=== PATIENT | female | born 1970 | race Caucasian/White ===

== ENCOUNTER 2016-07-16 12:12 | Emergency (ER) | payer MEDICAID ==
[2016-07-16 13:59] LABS: APPEARANCE TURBID (CLEAR); BACTERIA MANY /hpf (NONE SEEN); BILIRUBIN NEGATIVE (NEGATIVE); COLOR YELLOW (YELLOW); EPITHELIAL CELLS 0-5 /hpf (0-5); GLUCOSE NEGATIVE (NEGATIVE); KETONE NEGATIVE (NEGATIVE); LEUKOCYTE ESTERASE 2+ (NEGATIVE); MUCUS <1+ /lpf (NONE SEEN); NITRITE POSITIVE (NEGATIVE); PROTEIN 2+ mg/dL (NEGATIVE); RED CELLS - URINE >50 /hpf (0-5); SPECIFIC GRAVITY 1.015 (1.005-1.020); UROBILINOGEN NORMAL (NORMAL); WHITE CELLS - URINE >50 /hpf (0-5)
== END 2016-07-16 16:04 | disposition home or self-care (01) ==
LOC: D.ER 12:12
PROVIDERS: Emergency Medicine
DX: R30.0 Dysuria (principal); R10.9 Unspecified abdominal pain; N12 Tubulo-interstitial nephritis, not specified as acute or chronic

== ENCOUNTER → 2016-08-19 07:46 | Outpatient (CLI) | payer MEDICAID | LOC: D.MRI 07:46 | DX: F17.219 Nicotine dependence, cigarettes, with unspecified nicotine-induced disorders (principal) ==

== ENCOUNTER 2016-10-25 16:05 | Emergency (ER) | payer MEDICAID | END 2016-10-25 19:55 | disposition home or self-care (01) | LOC: D.ER 16:05 | DX: G43.909 Migraine, unspecified, not intractable, without status migrainosus (principal) ==

== ENCOUNTER 2017-01-05 13:13 | Emergency (ER) | payer MEDICAID ==
[2017-01-05 13:54] LABS: BASOPHILS 0.2 % (0-2); EOSINOPHILS 0.8 % (0-7); HEMATOCRIT 33.7 % (36.0-48.0); HEMOGLOBIN 10.9 g/dL (12-16); IMMATURE GRANULOCYTES 0.2 % (0-5); LYMPHOCYTES 12.9 % (15-50); MCH 27.9 pg (26.0-34.0); MCHC 32.3 g/dL (31.0-37.0); MCV 86.4 fL (80.0-100.0); MONOCYTES 8.4 % (2-11); NEUTROPHILS 77.5 % (40-80); PLATELET COUNT 174 10x3/uL (130-400); WBC 6.3 10x3/uL (4.8-10.8)
[2017-01-05 14:03] LABS: CALC OSMOLALITY 271 mosm/kg (275-300); CALCIUM 8.9 mg/dL (8.5-10.1); CARBON DIOXIDE 29.2 mmol/L (21.0-32.0); CHLORIDE - SERUM 101 mmol/L (98-107); CREATININE - SERUM 0.8 mg/dL (0.6-1.3); GLUCOSE 89 mg/dL (74-106); POTASSIUM - SERUM 4.1 mmol/L (3.5-5.1); SODIUM 137 mmol/L (136-145); UREA NITROGEN 11 mg/dL (7-18); eGFR NON AFRICAN AMERICAN 81 mL/min (90-120)
[2017-02-25] MEDS ORDERED: GEODON80 MG PO (14:32)
[2017-02-25] MEDS ORDERED: DONEPEZIL HCL5 M1 PO (14:32)
[2017-02-25] MEDS ORDERED: LEXAPRO20 MG PO (14:32)
[2017-02-25] MEDS ORDERED: AMBIEN5 MG PO (14:33)
[2017-02-25] MEDS ORDERED: BUPROPION XL300 MG PO (14:33)
[2017-02-26 08:40] VITALS: BMI 22.8
== END 2017-01-05 15:15 | disposition home or self-care (01) ==
LOC: D.ER 13:13
PROVIDERS: Nurse Practitioner Acute Care
DX: S06.0X9A Concussion with loss of consciousness of unspecified duration, initial encounter (principal); W19.XXXA Unspecified fall, initial encounter; Y93.89 Activity, other specified; Y92.029 Unspecified place in mobile home as the place of occurrence of the external cause; S00.81XA Abrasion of other part of head, initial encounter

== ENCOUNTER 2017-02-26 07:03 | Day surgery (SDC) | payer MEDICAID ==
[~2017-02-26] VITALS: Ht 165.1 cm; Wt 62.1 kg
[~2017-02-26 07:03] MED LIST: AMBIEN5 MG PO; BUPROPION XL300 MG PO; DONEPEZIL HCL5 M1 PO; GEODON80 MG PO; LEXAPRO20 MG PO
[2017-02-26 07:58] LABS: BASOPHILS 0.4 % (0-2); EOSINOPHILS 2.1 % (0-7); HEMATOCRIT 40.5 % (36.0-48.0); HEMOGLOBIN 13.1 g/dL (12-16); IMMATURE GRANULOCYTES 0.2 % (0-5); LYMPHOCYTES 23.2 % (15-50); MCH 27.6 pg (26.0-34.0); MCHC 32.3 g/dL (31.0-37.0); MCV 85.3 fL (80.0-100.0); MEAN PLATELET VOLUME 11.6 fL (7.4-10.4); MONOCYTES 8.6 % (2-11); NEUTROPHILS 65.5 % (40-80); PLATELET COUNT 208 10x3/uL (130-400); RBC 4.75 10x6/uL (4.00-5.40); RDW 13.9 % (11.5-14.5); WBC 4.7 10x3/uL (4.8-10.8)
[2017-02-26 08:40] VITALS: BP 156/89; Ht 165.1 cm; Wt 62.1 kg
--- NOTE | 2017-02-27 15:02 | OP ---
PATIENT NAME: AIDEN SOTELO MEDICAL RECORD: [id number] :68 LOCATION:[facility] ADMISSION DATE: SURGEON: VAUGHN DAVIS MD DATE OF OPERATION: 02/26/2017 SURGEON: Vaughn Davis MD ANESTHESIA: MAC. PREOPERATIVE DIAGNOSIS: Urge urinary incontinence. POSTOPERATIVE DIAGNOSIS: Urge urinary incontinence. PROCEDURES: Cystoscopy and intravesical Botox injection of 100 units. BLOOD LOSS: None. 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 She has been diagnosed with this condition also as well as she has developed urge urinary incontinence. Because of her cognitive impairment, I did not wish to treat this condition with anticholinergic medications which could make her confusion worse. I did try Myrbetriq 50 mg with the patient. Myrbetriq is a beta-3 agonist and it will not affect her cognitive function. Unfortunately, the Myrbetriq did not help her urge incontinence. She comes now to have intravesical Botox injected. She is not allergic to any medication. She was given Ancef utilization management um nurse to the OR. DESCRIPTION OF PROCEDURE: The patient was given IV sedation. She was placed in dorsal lithotomy position and prepped and draped. The 100 units of Botox was dissolved in 10 mL of injectable preservative-free saline. This was placed in a syringe. At 10 different sites, we injected 1 cc of this solution, giving 10 units at each injection site. We avoided the ureteral orifices and the trigone. Once the procedure was done, the bladder was fully emptied through the cystoscope sheath. I will see the patient in follow up in 2 weeks' time. TRANSINT:[id number] Voice Confirmation ID: [id number] DOCUMENT ID: [id number] VAUGHN DAVIS MD at 1502 CC: [id number] DICTATION DATE: 02/26/17 1449 FLORAL DESIGNER SALESPERSON: 02/26/17 1613 [facility] 02/26/[address] [address]
== END 2017-02-26 15:30 | disposition home or self-care (01) ==
LOC: D.OPS 07:03 → D.PAN 09:45 → D.OPS 09:45 → D.PAN 10:10 → D.OPS 15:30
PROVIDERS: Anesthesiology
DX: N39.41 Urge incontinence (principal); N32.89 Other specified disorders of bladder; Z01.812 Encounter for preprocedural laboratory examination

== ENCOUNTER → 2017-04-29 15:50 | Outpatient (CLI) | payer MEDICAID ==
[2017-02-26 08:40] VITALS: BMI 22.8
== END | disposition home or self-care (01) ==
LOC: D.MRI 04-14 08:30
DX: R51 Headache (principal)

== ENCOUNTER → 2017-09-12 09:08 | Outpatient (CLI) | payer MEDICAID ==
[2017-02-26 08:40] VITALS: BMI 22.8
== END | disposition home or self-care (01) ==
LOC: D.CT 09-11 11:00
DX: G91.9 Hydrocephalus, unspecified (principal)

== ENCOUNTER 2017-11-28 15:26 | Emergency (ER) | payer MEDICAID ==
[~2017-11-28] VITALS: Ht 165.1 cm; Wt 72.3 kg
[2017-11-28 15:45] VITALS: Ht 165.1 cm; Wt 72.3 kg
[2017-11-28] MEDS ORDERED: XANAX2 MG PO (15:49)
[2017-11-28 19:16] LABS: BASOPHILS 0.2 % (0-2); EOSINOPHILS 2.1 % (0-7); HEMATOCRIT 30.5 % (36.0-48.0); LYMPHOCYTES 22.4 % (15-50); MCHC 29.5 g/dL (31.0-37.0); MCV 74.4 fL (80.0-100.0); MEAN PLATELET VOLUME 12.1 fL (7.4-10.4); MONOCYTES 12.5 % (2-11); NEUTROPHILS 62.8 % (40-80); PLATELET COUNT 227 10x3/uL (130-400); RDW 16.2 % (11.5-14.5); WBC 4.3 10x3/uL (4.8-10.8)
[2017-11-28 19:30] LABS: ALBUMIN 3.2 g/dL (3.4-5.0); ALKALINE PHOSPHATASE 94 U/L (46-116); ALT (SGPT) 25 U/L (10-68); CALC OSMOLALITY 276 mosm/kg (275-300); CALCIUM 8.4 mg/dL (8.5-10.1); CARBON DIOXIDE 28.1 mmol/L (21.0-32.0); CHLORIDE - SERUM 104 mmol/L (98-107); CREATININE - SERUM 0.8 mg/dL (0.6-1.3); GLUCOSE 97 mg/dL (74-106); LIPASE 157 U/L (73-393); POTASSIUM - SERUM 3.9 mmol/L (3.5-5.1); PROTEIN - SERUM 7.1 g/dL (6.4-8.2); SODIUM 139 mmol/L (136-145); UREA NITROGEN 9 mg/dL (7-18); eGFR NON AFRICAN AMERICAN 81 mL/min (90-120)
[2017-11-28] MEDS ORDERED: NORCO 7.5/325 T1 TA1 PO (21:23)
[2017-11-28] MEDS ORDERED: FLUTICASONE PRO16 GM NASAL ×2 (21:23→21:24)
[2017-11-28] MEDS ORDERED: OMNICEF300 MG PO (21:23)
[2017-11-28 21:32] VITALS: BP 155/70
== END 2017-11-28 21:55 | disposition home or self-care (01) ==
LOC: D.ER 15:26
PROVIDERS: Family Medicine
DX: R51 Headache (principal); J01.90 Acute sinusitis, unspecified; R10.32 Left lower quadrant pain; F03.90 Unspecified dementia, unspecified severity, without behavioral disturbance, psychotic disturbance, mood disturbance, and anxiety; F31.9 Bipolar disorder, unspecified

== ENCOUNTER 2017-12-14 19:17 | Emergency (ER) | payer MEDICAID ==
[~2017-12-14] VITALS: Ht 165.1 cm; Wt 72.1 kg
[~2017-12-14 19:17] MED LIST changes: +FLUTICASONE PRO16 GM NASAL; +NORCO 7.5/325 T1 TA1 PO; +OMNICEF300 MG PO; +XANAX2 MG PO
[2017-12-14 19:30] VITALS: Ht 165.1 cm; Wt 72.1 kg
[2017-12-14 19:56] LABS: BASOPHILS 0.4 % (0-2); HEMATOCRIT 30.8 % (36.0-48.0); HEMOGLOBIN 9.4 g/dL (12-16); IMMATURE GRANULOCYTES 0.2 % (0-5); LYMPHOCYTES 22.2 % (15-50); MCHC 30.5 g/dL (31.0-37.0); MCV 72.1 fL (80.0-100.0); MEAN PLATELET VOLUME 11.5 fL (7.4-10.4); MONOCYTES 17.3 % (2-11); NEUTROPHILS 57.9 % (40-80); PLATELET COUNT 242 10x3/uL (130-400); RBC 4.27 10x6/uL (4.00-5.40); RDW 16.8 % (11.5-14.5); WBC 5.1 10x3/uL (4.8-10.8)
[2017-12-14 20:21] LABS: ALBUMIN 3.5 g/dL (3.4-5.0); ANION GAP 16.8 mmol/L (8-16); BILIRUBIN - TOTAL 0.14 mg/dL (0.2-1.3); CALCIUM 8.3 mg/dL (8.5-10.1); CARBON DIOXIDE 23.3 mmol/L (21.0-32.0); CREATININE - SERUM 0.9 mg/dL (0.6-1.3); POTASSIUM - SERUM 4.1 mmol/L (3.5-5.1); PROTEIN - SERUM 7.1 g/dL (6.4-8.2)
[2017-12-14 22:00] VITALS: BP 150/60
== END 2017-12-14 22:50 | disposition home or self-care (01) ==
LOC: D.ER 19:17
PROVIDERS: Family Medicine
DX: Z98.2 Presence of cerebrospinal fluid drainage device (principal); D64.9 Anemia, unspecified; R11.2 Nausea with vomiting, unspecified; Z87.820 Personal history of traumatic brain injury; F03.90 Unspecified dementia, unspecified severity, without behavioral disturbance, psychotic disturbance, mood disturbance, and anxiety

== ENCOUNTER 2018-05-10 11:53 | Emergency (ER) | payer MEDICAID ==
[~2018-05-10] VITALS: Ht 165.1 cm; Wt 73.2 kg
[2018-05-10 11:56] VITALS: Ht 165.1 cm; Wt 73.2 kg
[2018-05-10 12:29] LABS: APPEARANCE CLEAR (CLEAR); COLOR YELLOW (YELLOW)
[2018-05-10 12:30] LABS: BILIRUBIN NEGATIVE (NEGATIVE); GLUCOSE NEGATIVE (NEGATIVE); KETONE NEGATIVE (NEGATIVE); NITRITE NEGATIVE (NEGATIVE); PROTEIN NEGATIVE (NEGATIVE); UROBILINOGEN NORMAL (NORMAL)
[2018-05-10 13:37] LABS: BASOPHILS 0.2 % (0-2); EOSINOPHILS 0 % (0-7); HEMATOCRIT 32.5 % (36.0-48.0); HEMOGLOBIN 9.6 g/dL (12-16); IMMATURE GRANULOCYTES 0.2 % (0-5); MCH 21.3 pg (26.0-34.0); MCHC 29.5 g/dL (31.0-37.0); MCV 72.2 fL (80.0-100.0); MEAN PLATELET VOLUME 10.8 fL (7.4-10.4); MONOCYTES 10.3 % (2-11); NEUTROPHILS 70.3 % (40-80); PLATELET COUNT 239 10x3/uL (130-400)
[2018-05-10 13:48] LABS: ANION GAP 19.1 mmol/L (8-16); BILIRUBIN - TOTAL 0.3 mg/dL (0.2-1.3); CALCIUM 8.6 mg/dL (8.5-10.1); CARBON DIOXIDE 22.1 mmol/L (21.0-32.0); POTASSIUM - SERUM 4.2 mmol/L (3.5-5.1); PROTEIN - SERUM 7.6 g/dL (6.4-8.2)
[2018-05-10] MEDS ORDERED: PHENERGAN DM SYR5 ML PO (16:25)
[2018-05-10] MEDS ORDERED: PROTONIX40 MG PO (16:25)
[2018-05-10 16:53] VITALS: BP 126/54
== END 2018-05-10 16:54 | disposition home or self-care (01) ==
LOC: D.ER 11:53
PROVIDERS: Family Medicine
DX: K29.70 Gastritis, unspecified, without bleeding (principal); D64.9 Anemia, unspecified; M54.5 Low back pain; F03.90 Unspecified dementia, unspecified severity, without behavioral disturbance, psychotic disturbance, mood disturbance, and anxiety

== ENCOUNTER 2018-11-03 06:02 | Day surgery (SDC) | payer MEDICAID ==
[~2018-11-03] VITALS: Ht 165.1 cm; Wt 69.9 kg
[~2018-11-03 06:02] MED LIST changes: +DONEPEZIL HCL10 MG PO; -DONEPEZIL HCL5 M1 PO; +PHENERGAN DM SYR5 ML PO; +PROTONIX40 MG PO
[2018-11-03 06:50] LABS: HEMATOCRIT 26.5 % (36.0-48.0); HEMOGLOBIN 8.1 g/dL (12-16); MCH 23.7 pg (26.0-34.0); MCHC 30.6 g/dL (31.0-37.0); MCV 77.5 fL (80.0-100.0); MEAN PLATELET VOLUME 10.2 fL (7.4-10.4); RBC 3.42 10x6/uL (4.00-5.40); RDW 17.8 % (11.5-14.5); WBC 6.1 10x3/uL (4.8-10.8)
[2018-11-03] MEDS ORDERED: LISINOPRIL10 MG PO (06:56)
[2018-11-03 07:07] VITALS: BP 137/76; Ht 165.1 cm; Wt 69.9 kg
[2018-11-03 07:11] LABS: HCG URINE NEGATIVE (NEGATIVE)
--- NOTE | 2018-11-03 09:30 | NUR ---
0920 UP TO BR VOIDS QS. FL DIET SERVED.
--- NOTE | 2018-11-03 09:46 | OP ---
PATIENT NAME: AIDEN SOTELO MEDICAL RECORD: [id number] :68 LOCATION:D.OPS ADMISSION DATE: SURGEON: VAUGHN DAVIS MD DATE OF OPERATION: 11/03/2018 SURGEON: Vaughn Davis MD ANESTHESIA: TIVA by Evelia Quiles CRNA. DIAGNOSIS: Urge urinary incontinence. PROCEDURES: Cystoscopy with intravesical Botox injection 100 units. FINDINGS: On cystoscopy, single ureteral orifices bilaterally. No bladder tumors. Diffusely inflamed bladder. BLOOD LOSS: None. CLINICAL HISTORY: This is a 48-year-old female, who has a history of urge urinary incontinence, which has not responded to medication. Since 2017, she has been treated with intravesical Botox injection, which has worked. 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 SHE IS ALLERGIC TO SULFA. She comes today to have a repeat Botox injection done. She was given Ancef physical integration practitioner to the OR. DESCRIPTION OF PROCEDURE: The patient was given IV sedation. She was then placed into lithotomy position and prepped and draped. A 21-Faroese cystoscope with 30-degree lens was used for visualization. At 10 different locations, avoiding the ureteral orifices and the trigone 1 cc of Botox solution was injected into the bladder muscle wall. Each mL contains 10 units of dissolved Botox. Once the procedure was terminated, the bladder was emptied through the cystoscope sheath. The scope was then removed. I will see her in followup in 1 month's time. TRANSINT:[id number] Voice Confirmation ID: [id number] DOCUMENT ID: [id number] VAUGHN DAVIS MD at 0946 CC: [id number] DICTATION DATE: 11/03/18905 SEMICONDUCTOR TECHNICIAN: 11/03/18 0930 [address] [place] [address]
--- NOTE | 2018-11-03 11:37 | NUR ---
LATE ENTRY-BEFORE GETTING ON OR CYSTO TABLE PATIENT NOTED TO HAVING AN INCISION WITH TROY ON BACK, STATED HAD BACK SURGERY September, WE PLACED PRIMAPORE AND WATER PROOF DRAPE TO KEEP THIS AREA CLEAN AND DRY DURING PROCEDURE THEN REMOVED IT WHEN CASE WAS COMPLETED. INCISION WAS DRY AND INTACT WITH TROY, GIOVANNY.
== END 2018-11-03 10:00 | disposition home or self-care (01) ==
LOC: D.OPS 06:02 → D.PAN 08:40 → D.OPS 10:00 → D.PAN 12:00
PROVIDERS: Anesthesiology; ATTEND Urology
DX: N39.41 Urge incontinence (principal)

== ENCOUNTER → 2018-11-20 07:48 | Outpatient (CLI) | payer MEDICAID ==
[2018-11-03 07:07] VITALS: BMI 25.6
[~2018-11-20 07:48] MED LIST changes: +LISINOPRIL10 MG PO
== END | disposition home or self-care (01) ==
LOC: D.CT 11-19 10:30
PROVIDERS: ATTEND Obstetrics & Gynecology
DX: R93.89 Abnormal findings on diagnostic imaging of other specified body structures (principal)

== ENCOUNTER 2019-01-04 08:24 | Day surgery (SDC) | payer MEDICAID ==
[2019-01-01 11:27] LABS: BASOPHILS 0.1 % (0-2); EOSINOPHILS 1.6 % (0-7); HEMATOCRIT 33.2 % (36.0-48.0); HEMOGLOBIN 9.7 g/dL (12-16); IMMATURE GRANULOCYTES 0.1 % (0-5); LYMPHOCYTES 14.8 % (15-50); MCHC 29.2 g/dL (31.0-37.0); MCV 75.3 fL (80.0-100.0); MONOCYTES 9.6 % (2-11); NEUTROPHILS 73.8 % (40-80); RBC 4.41 10x6/uL (4.00-5.40); WBC 7.6 10x3/uL (4.8-10.8)
[2019-01-01 11:34] LABS: PLATELET COUNT 188 10x3/uL (130-400)
[2019-01-01 11:36] LABS: CALC OSMOLALITY 284 mosm/kg (275-300); CALCIUM 8.8 mg/dL (8.5-10.1); CARBON DIOXIDE 31.6 mmol/L (21.0-32.0); CHLORIDE - SERUM 106 mmol/L (98-107); CREATININE - SERUM 0.8 mg/dL (0.6-1.3); GLUCOSE 89 mg/dL (74-106); SODIUM 144 mmol/L (136-145); UREA NITROGEN 11 mg/dL (7-18); eGFR NON AFRICAN AMERICAN 80 mL/min (90-120)
[2019-01-01 11:48] LABS: POTASSIUM - SERUM 2.9 mmol/L (3.5-5.1)
[~2019-01-04] VITALS: Ht 165.1 cm; Wt 69.9 kg
[2019-01-04 09:43] VITALS: BP 134/62; Ht 165.1 cm; Wt 69.9 kg
[2019-01-04 10:17] LABS: HCG URINE NEGATIVE (NEGATIVE)
--- NOTE | 2019-01-04 13:34 | NUR ---
PATIENT AWAKE. MEETS ANESTHESIA DISCHARGE CRITERIA
--- NOTE | 2019-01-04 14:00 | NUR ---
1350 RX'S GIVEN TO DAUGHTER PER PT. REQUEST. FL DIET SERVED.
--- NOTE | 2019-01-26 07:47 | OP ---
PATIENT NAME: AIDEN SOTELO MEDICAL RECORD: [id number] :68 LOCATION:D.OPS ADMISSION DATE: SURGEON: MICHEL ARENAS MD DATE OF OPERATION: 01/04/2019 PREOPERATIVE DIAGNOSES: 1. Ovarian cyst. 2. Abnormal YASMIN. 3. History of head injury with shunt placement. POSTOPERATIVE DIAGNOSES: 1. Ovarian cyst. 2. Abnormal YASMIN. 3. History of head injury with shunt placement. PROCEDURE: 1. Laparoscopic bilateral salpingectomy and oophorectomy. 2. Diagnostic laparoscopy. SURGEON: Michel Arenas MD ANESTHESIOLOGIST: Sandro Navarrete MD ANESTHESIA: General. FINDINGS: Bilateral ovarian cysts are noted to be small. These are clip filled with clear fluid. Bilateral tubes are unremarkable as well as the uterus, which is found to be retroverted. The shunt is visible in the lower pelvis and abdomen. SPECIMEN REMOVED: Bilateral ovaries and tubes. SPECIMEN DISPOSITION: Pathology. ESTIMATED BLOOD LOSS: Less than 50 cc. FLUIDS: 1100 cc of lactated Ringer's. URINE OUTPUT: Quantity sufficient cath prior to this procedure. COMPLICATIONS: None. DRAINS: None. INDICATIONS: The patient is a 49-year-old, perimenopausal female with elevated YASMIN and small ovarian cyst. The patient has been given informed consent and desires diagnostic laparoscopy and possible BSO. The patient understands possibility of ovarian carcinoma and the need for referral. DESCRIPTION OF PROCEDURE: After informed consent was assured, the patient was taken to the operating room where anesthetic was obtained. The patient is now prepped and draped in the usual sterile fashion. Attention was directed to the abdomen where an incision was made and a 5-mm trocar inserted. Pneumoperitoneum was developed and the patient is in Trendelenburg position. After placement of the accessory ports, the left tube and ovary are elevated. Using a [employer] OPERATIVE REPORT [id number] AIDEN SOTELO coagulation cutter, the infundibulopelvic ligament was compressed, coagulated, and . The dissection was carried out underneath the left ovary and under the left tube. It concludes at the cornual region. After removal of the left tube and ovary, it is placed in the anterior pouch. Attention was now directed to the right side where the right tube and ovary were elevated in similar fashion. Again, using a Thunderbeat coagulation cutter, infundibulopelvic ligament was compressed, coagulated, and . The dissection was carried out under the right ovary and right tube. Right tube and ovary and placed in the anterior pouch. An Endobag placed through a 10-mm port in the midline, both ovaries are collected and removed. The operative field was inspected and found to be hemostatic. The pneumoperitoneum was released as the accessory trocars were removed. The primary trocar was now removed and all sites closed with subcuticular stitch. Sterile dressing is applied. Sponge, lap, and needle counts correct times 2. The patient was awakened and went to the recovery area in stable condition. TRANSINT:[id number] Voice Confirmation ID: [id number] DOCUMENT ID: [id number] MICHEL ARENAS MD at 0747 CC: [id number] DICTATION DATE: 01/21/19 1732 CURRICULUM DEVELOPMENT COORDINATOR: 01/21/19 2209 [facility] 01/04/19 [address] [place] [address]
== END 2019-01-04 14:50 | disposition home or self-care (01) ==
LOC: D.OPS 08:24 → D.PAN 11:10 → D.OPS 11:10 → D.PAN 11:45 → D.OPS 11:45
PROVIDERS: ATTEND Obstetrics & Gynecology
DX: N83.202 Unspecified ovarian cyst, left side (principal); N83.201 Unspecified ovarian cyst, right side; R19.09 Other intra-abdominal and pelvic swelling, mass and lump; R10.2 Pelvic and perineal pain

== ENCOUNTER → 2019-11-12 13:15 | Outpatient (CLI) | payer MEDICARE ==
[2019-01-04 09:43] VITALS: BMI 25.6
== END | disposition home or self-care (01) ==
LOC: D.RAD 13:15
PROVIDERS: ATTEND Family Medicine
DX: R13.19 Other dysphagia (principal)

== ENCOUNTER 2020-08-23 11:45 | Outpatient (CLI) | payer MEDICARE ==
[2019-01-04 09:43] VITALS: BMI 25.6
== END 2020-08-23 12:15 | disposition home or self-care (01) ==
LOC: D.MAMMO 11:45
PROVIDERS: ATTEND Obstetrics & Gynecology
DX: Z12.31 Encounter for screening mammogram for malignant neoplasm of breast (principal)

== ENCOUNTER 2020-09-24 15:22 | Inpatient (IN) | payer MEDICARE, MEDICAID ==
[~2020-09-24] VITALS: Ht 165.1 cm; Wt 72.7 kg
[2020-09-24 15:27] VITALS: Ht 165.1 cm; Wt 72.7 kg
[2020-09-24 15:41] VITALS: BP 177/102
[2020-09-24 15:41] LABS: BASOPHILS 0.5 % (0-2); EOSINOPHILS 0.1 % (0-7); HEMATOCRIT 44.1 % (36.0-48.0); HEMOGLOBIN 14.7 g/dL (12-16); LYMPHOCYTES 10.4 % (15-50); MCH 27.8 pg (26.0-34.0); MCHC 33.2 g/dL (31.0-37.0); MCV 83.7 fL (80.0-100.0); MEAN PLATELET VOLUME 10.7 fL (7.4-10.4); MONOCYTES 5.9 % (2-11); NEUTROPHILS 83.1 % (40-80); PLATELET COUNT 172 10x3/uL (130-400); RBC 5.27 10x6/uL (4.00-5.40); RDW 13.3 % (11.5-14.5); WBC 7.8 10x3/uL (4.8-10.8)
[2020-09-24 15:43] LABS: CALC OSMOLALITY 293 mosm/kg (275-300); CALCIUM 9.7 mg/dL (8.5-10.1); CARBON DIOXIDE 23.3 mmol/L (21.0-32.0); CHLORIDE - SERUM 110 mmol/L (98-107); CREATININE - SERUM 1.1 mg/dL (0.6-1.3); GLUCOSE 132 mg/dL (74-106); POTASSIUM - SERUM 3.9 mmol/L (3.5-5.1); SODIUM 147 mmol/L (136-145); UREA NITROGEN 12 mg/dL (7-18); eGFR NON AFRICAN AMERICAN 55 mL/min (90-120)
--- NOTE | 2020-09-24 15:47 | NUR ---
BEDSIDE GLUCOSE 109
[2020-09-24 15:58] LABS: APTT 22.4 SECONDS (22.8-39.4); INR 1.18 (0.85-1.17); PROTIME 13.9 SECONDS (11.6-15.0)
[2020-09-24 16:02] LABS: ALBUMIN 4.4 g/dL (3.4-5.0); ALKALINE PHOSPHATASE 114 U/L (30-120); ALT (SGPT) 32 U/L (10-68); BILIRUBIN - TOTAL 0.45 mg/dL (0.2-1.3); CKMB 2.4 U/L (0.0-3.6); CREATINE KINASE 115 UL (21-215); MAGNESIUM - SERUM 2.3 mg/dL (1.8-2.4); PROTEIN - SERUM 7.9 g/dL (6.4-8.2); THYROID STIMULATING HORMONE 1.67 uIU/mL (0.36-3.74); TROPONIN-I < 0.017 ng/mL (0.000-0.060)
[2020-09-24 16:06] VITALS: BP 120/66
--- NOTE | 2020-09-24 17:14 | NUR ---
BEDSIDE GLUCOSE 101
[2020-09-24 17:17] LABS: BACTERIA FEW HPF (<MOD); BILIRUBIN NEGATIVE (NEGATIVE); KETONE 1+ mg/dL (< 1+); NITRITE NEGATIVE (NEGATIVE); PH 6.5 (5.0-8.0); SQUAMOUS EPITHELIAL <1 HPF (0-4); UROBILINOGEN 2 mg/dL (< 2); WHITE CELLS - URINE 2 HPF (0-4)
[2020-09-24 17:19] LABS: UDS - AMPHET NEGATIVE QUAL (NEGATIVE); UDS - BARB NEGATIVE QUAL (NEGATIVE); UDS - BENZO POSITIVE QUAL (NEGATIVE); UDS - COCAINE NEGATIVE QUAL (NEGATIVE); UDS - OPIATE NEGATIVE QUAL (NEGATIVE); UDS - PCP NEGATIVE QUAL (NEGATIVE); UDS - THC POSITIVE QUAL (NEGATIVE)
--- NOTE | 2020-09-24 20:12 | NUR ---
NOY BHAGAT - [facility] - [phone]
[2020-09-25 00:26] VITALS: BP 141/63
--- NOTE | 2020-09-25 01:00 | NUR ---
REPORT FROM GINA HERR PT RESTING EYES CLOSED RESP EVEN AND UNALBORED.
[2020-09-25 01:48] VITALS: BP 135/72
--- NOTE | 2020-09-25 02:30 | NUR ---
PT URINATED IN BED. PT HELPED CLEAN UP AND CHANGED INTO GOWN. PT BELONGINGS PLACED IN BAG. PT STATES THAT SHE IS FEELING BETTER AND HOPES TO GO HOME IN AM. PT GIVEN COKE TO DRINK
[2020-09-25 03:00] VITALS: BP 154/68
--- NOTE | 2020-09-25 03:26 | NUR ---
PT MOVED TO ROOM 5 DUE TO CALL LIGHT NOT WORKING. PT ALERT AND ORIENTED AT THIS TIME. PT IS TEARFUL THAT SHE HAD AMS EPISODE TODAY PT STATES THAT SHE IS WORRIED SHE WILL NOT BE ABLE TO DRIVE PT IS UNCLEAR ON DETAILS OF WHAT HAPPENED TODAY.
--- NOTE | 2020-09-25 04:32 | NUR ---
PT ABLE TO WALK TO BATHROOM WITHOUT ASSISTANCE.
[2020-09-25 04:51] VITALS: BP 150/49
[2020-09-25 06:35] VITALS: BP 158/59
--- NOTE | 2020-09-25 06:37 | NUR ---
LAB AT BEDSIDE.
[2020-09-25 07:21] LABS: ALBUMIN 3.3 g/dL (3.4-5.0); ALKALINE PHOSPHATASE 95 U/L (30-120); BILIRUBIN - TOTAL 0.28 mg/dL (0.2-1.3); CALCIUM 8.3 mg/dL (8.5-10.1); CARBON DIOXIDE 21.6 mmol/L (21.0-32.0); CHLORIDE - SERUM 110 mmol/L (98-107); GLUCOSE 107 mg/dL (74-106); MAGNESIUM - SERUM 2.1 mg/dL (1.8-2.4); PHOSPHOROUS 3.1 mg/dL (2.5-4.9); POTASSIUM - SERUM 3.6 mmol/L (3.5-5.1); PROTEIN - SERUM 6.3 g/dL (6.4-8.2); SODIUM 141 mmol/L (136-145)
[2020-09-25 07:22] LABS: ALT (SGPT) 22 U/L (10-68); CALC OSMOLALITY 278 mosm/kg (275-300); CREATININE - SERUM 0.6 mg/dL (0.6-1.3); UREA NITROGEN 8 mg/dL (7-18); eGFR NON AFRICAN AMERICAN > 90 mL/min (90-120)
[2020-09-25 10:16] LABS: BASOPHILS 0 % (0-2); EOSINOPHILS 0 % (0-7); HEMATOCRIT 40.4 % (36.0-48.0); HEMOGLOBIN 13.2 g/dL (12-16); LYMPHOCYTES 15.1 % (15-50); MCH 27.9 pg (26.0-34.0); MCHC 32.7 g/dL (31.0-37.0); MCV 85.1 fL (80.0-100.0); MONOCYTES 12.2 % (2-11); NEUTROPHILS 72.7 % (40-80); RBC 4.74 10x6/uL (4.00-5.40); RDW 13.4 % (11.5-14.5); WBC 6.5 10x3/uL (4.8-10.8)
[2020-09-25 10:20] LABS: PLATELET COUNT 137 10x3/uL (130-400)
[2020-09-25] MEDS ORDERED: DONEPEZIL HCL10 MG PO (10:56)
--- NOTE | 2020-09-25 11:52 | NUR ---
SPOKE WITH ANGELES IN CASE MANAGMENT. WILL COME TO SEE PATIENT TO ASSESS NEEDS PRIOR TO DISCHARGE.
[2020-09-25 14:10] VITALS: BP 165/80
== END 2020-09-25 16:10 | disposition home or self-care (01) | DRG 640 ==
LOC: D.ER 15:22 → D.EDHOLD 17:00
PROVIDERS: Family Medicine; ADMIT Emergency Medicine; ATTEND Emergency Medicine
DX: E87.0 Hyperosmolality and hypernatremia (principal); G93.41 Metabolic encephalopathy; D50.9 Iron deficiency anemia, unspecified; I10 Essential (primary) hypertension; F41.8 Other specified anxiety disorders; F31.9 Bipolar disorder, unspecified; R41.3 Other amnesia